=== PATIENT | male | born 1985 ===

== ENCOUNTER 2022-08-25 19:44 | Emergency (ER) | payer OTHER ==
[~2022-08-25] VITALS: Ht 165.1 cm; Wt 81.7 kg
[2022-08-25 20:22] LABS: Source, Urine Clean Catch
[2022-08-25 20:29] LABS: Bilirubin, Urine Neg (Neg); Blood, Urine Neg (Neg); Glucose Qualitative, Urine Neg (Neg); Ketones, Urine Neg (Neg); Leukocyte Esterase, Urine Neg (Neg); Nitrite, Urine Neg (Neg); Protein, Urine 1+ (Neg); Urobilinogen, Urine NORM (Normal)
[2022-08-25 21:02] LABS: Appearance, Urine Clear (Clear); Color, Urine Yellow (P-Yellow)
[2022-08-25] MEDS ORDERED: IBUP800 PO (21:47)
== END 2022-08-25 21:56 | disposition home or self-care (01) ==
LOC: ER 19:44
PROVIDERS: Medical Genetics Clinical Biochemical Genetics
DX: N50.819 Testicular pain, unspecified (principal)
CPT/HCPCS: 76870

== ENCOUNTER 2023-01-25 20:24 | Emergency (ER) | payer MEDICAID ==
[~2023-01-25] VITALS: Ht 165.1 cm; Wt 81.7 kg
[~2023-01-25 20:24] MED LIST: IBUP800 PO
[2023-01-25 21:00] VITALS: BP 136/90
[2023-01-26] MEDS ORDERED: Cephalexin500 MG PO (00:12)
[2023-01-26] MEDS ORDERED: IBUP400 PO (00:12)
== END 2023-01-26 00:37 | disposition home or self-care (01) ==
LOC: ER 20:24
DX: S51.822A Laceration with foreign body of left forearm, initial encounter (principal); F15.90 Other stimulant use, unspecified, uncomplicated; W25.XXXA Contact with sharp glass, initial encounter
CPT/HCPCS: 73090; 90471; 90714; 90715; 99283-25; A9270